=== PATIENT | female | born 1955 | race Caucasian/White ===

== ENCOUNTER → 2016-07-24 | Day surgery (SDC) | payer MEDICARE, OTHER ==
[~2016-07-24] MED LIST: BUSPAR5 MG PO; ELAVIL25 MG PO; ESTRACE1 MG PO; FLEXERIL10 MG PO; HYDROCODON-ACET15 ML PO; INDERAL LA120 MG PO; INDOCIN25 MG PO; LEVAQUIN750 MG PO; LINZESS145 MCG PO; LIPITOR40 MG PO; NEURONTIN600 MG PO; PHENERGAN25 M1 PO; PREDNISONE 10MG10 MG PO; PREVACID30 MG PO; PROAIR HFA8.5 GM INH; SALINE NOSE SPR45 ML INH; TOPAMAX50 MG PO; TYLENOL #31 EACH PO; VIBRAMYCIN100 MG PO; VITAMIN D5000 UNI1 PO
[2016-07-24 11:51] LABS: CREATININE 1.1 mg/dL (0.5-1.0); POTASSIUM 4.2 mmol/L (3.5-5.1)
== END | disposition home or self-care (01) ==
LOC: FAS 14:14
PROVIDERS: Anesthesiology
DX: K44.0 Diaphragmatic hernia with obstruction, without gangrene (principal); K29.70 Gastritis, unspecified, without bleeding; G25.81 Restless legs syndrome; K58.9 Irritable bowel syndrome, unspecified; M19.90 Unspecified osteoarthritis, unspecified site; E78.5 Hyperlipidemia, unspecified; K22.10 Ulcer of esophagus without bleeding; K21.0 Gastro-esophageal reflux disease with esophagitis; Z88.5 Allergy status to narcotic agent; Z88.8 Allergy status to other drugs, medicaments and biological substances; Z90.49 Acquired absence of other specified parts of digestive tract; Z90.710 Acquired absence of both cervix and uterus; Z90.89 Acquired absence of other organs; Z98.890 Other specified postprocedural states; Z82.49 Family history of ischemic heart disease and other diseases of the circulatory system; Z81.8 Family history of other mental and behavioral disorders; Z82.3 Family history of stroke; Z80.42 Family history of malignant neoplasm of prostate; Z87.891 Personal history of nicotine dependence; Z79.818 Long term (current) use of other agents affecting estrogen receptors and estrogen levels; Z79.899 Other long term (current) drug therapy; Z79.52 Long term (current) use of systemic steroids
CPT/HCPCS: 36415; 80048; 88305; J2704